=== PATIENT | female | born 1980 | race Hispanic/Latino ===

== ENCOUNTER 2017-08-01 21:21 | Emergency (ER) | payer MEDICAID | END 2017-08-01 22:30 | disposition home or self-care (01) | LOC: EDH 21:21 | DX: T16.2XXA Foreign body in left ear, initial encounter (principal); J45.909 Unspecified asthma, uncomplicated; K21.9 Gastro-esophageal reflux disease without esophagitis; Z91.041 Radiographic dye allergy status; Z88.1 Allergy status to other antibiotic agents; Z88.8 Allergy status to other drugs, medicaments and biological substances; Z98.51 Tubal ligation status; Z90.710 Acquired absence of both cervix and uterus; Z98.890 Other specified postprocedural states; X58.XXXA Exposure to other specified factors, initial encounter; Y93.89 Activity, other specified; Y92.89 Other specified places as the place of occurrence of the external cause; Y99.8 Other external cause status | CPT/HCPCS: 99281 ==

== ENCOUNTER 2018-07-09 00:45 | Emergency (ER) | payer MEDICAID ==
[~2018-07-09 00:45] MED LIST: CEFD300C3 PO
[2018-07-09] MEDS ORDERED: MORPHINE SULFATE 4 MG/1ML SYG ONE (01:19)
[2018-07-09 01:25] LABS: CREATININE 0.8 mg/dL (0.5-1.5); POTASSIUM 4.7 mmol/L (3.5-5.1)
[2018-07-09 01:30] LABS: ALBUMIN 3.5 g/dL (3.5-5.0); BILIRUBIN,TOTAL 0.4 mg/dL (0.2-1.0); TOTAL PROTEIN, SERUM 7.3 g/dL (6.0-8.3)
[2018-07-09 01:34] LABS: BILIRUBIN,URINE Negative (NEGATIVE); COLOR,URINE Yellow (YELLOW); GLUCOSE, URINE (UA) Negative (NEGATIVE); KETONES,URINE Negative (NEGATIVE); LEUKOCYTE ESTERASE ,URINE Negative (NEGATIVE); NITRATE,URINE Negative (NEGATIVE); OCCULT BLOOD,URINE Negative (NEGATIVE); PH,URINE 5.5 (5.0-8.0); PROTEIN,URINE Negative (NEGATIVE)
[2018-07-09 01:37] LABS: APPEARANCE,URINE CLEAR (CLEAR)
[2018-07-09 01:38] LABS: BASOPHILS % (AUTO) 0.7 % (0.0-5.0); EOSINOPHILS % (AUTO) 1.8 % (0.0-8.0); HEMATOCRIT 39.3 % (36-48); LYMPHOCYTES % (AUTO) 38.1 % (21.0-51.0); MEAN CORPUSCULAR HEMOGLOBIN 29.9 pg (27.0-33.0); MEAN CORPUSCULAR HGB CONC 33.8 g/dL (32.0-36.0); MEAN CORPUSCULAR VOLUME 88.7 fL (79-99); MONOCYTES % (AUTO) 6.6 % (3.0-13.0); NEUTROPHILS % (AUTO) 52.8 % (40.0-77.0); NUCLEATED RED BLOOD CELLS 0.3 % (0.0-0.19); PLATELET COUNT (AUTO) 108 K/uL (130-400); RED BLOOD CELL COUNT(AUTO) 4.43 MIL/uL (4.00-5.50); RED CELL DISTRIBUTION WIDTH 12.9 % (11.0-15.5); WHITE BLOOD COUNT (AUTO) 8.3 K/uL (4.8-10.8)
[2018-07-09 01:58] LABS: PLATELET MORPHOLOGY PLT CLUMPS PRESENT
== END 2018-07-09 03:11 | disposition home or self-care (01) ==
LOC: EDH 00:45
DX: K52.9 Noninfective gastroenteritis and colitis, unspecified (principal); J45.909 Unspecified asthma, uncomplicated; K21.9 Gastro-esophageal reflux disease without esophagitis; Z90.49 Acquired absence of other specified parts of digestive tract; Z90.710 Acquired absence of both cervix and uterus; Z98.51 Tubal ligation status; Z88.8 Allergy status to other drugs, medicaments and biological substances; Z88.6 Allergy status to analgesic agent; Z88.1 Allergy status to other antibiotic agents; Z91.041 Radiographic dye allergy status; Z79.899 Other long term (current) drug therapy
CPT/HCPCS: 36415; 74176; 80053; 81003; 81025; 83690; 85025; 93005; 96374; 99284; J2270

== ENCOUNTER 2018-10-08 21:44 | Emergency (ER) | payer MEDICAID ==
[2018-10-08 22:43] LABS: BASOPHILS % (AUTO) 0.5 % (0.0-5.0); EOSINOPHILS % (AUTO) 0.5 % (0.0-8.0); HEMATOCRIT 38.2 % (36-48); LYMPHOCYTES % (AUTO) 30.2 % (21.0-51.0); MEAN CORPUSCULAR HEMOGLOBIN 30.2 pg (27.0-33.0); MEAN CORPUSCULAR HGB CONC 34.3 g/dL (32.0-36.0); MONOCYTES % (AUTO) 7.9 % (3.0-13.0); NEUTROPHILS % (AUTO) 60.9 % (40.0-77.0); NUCLEATED RED BLOOD CELLS 0.1 % (0.0-0.19); PLATELET COUNT (AUTO) 217 K/uL (130-400); RED BLOOD CELL COUNT(AUTO) 4.34 MIL/uL (4.00-5.50); RED CELL DISTRIBUTION WIDTH 12.8 % (11.0-15.5); WHITE BLOOD COUNT (AUTO) 8.4 K/uL (4.8-10.8)
[2018-10-08] MEDS ORDERED: KETOROLAC TROMETHAMINE 30MG/ML ONE (22:45)
[2018-10-08] MEDS ORDERED: METOCLOPRAMIDE 10 MG/2 ML VIAL ONE (22:45)
[2018-10-08] MEDS ORDERED: SODIUM CHLORIDE 0.9% 1000ML 1,000 ML IV ONE (22:45)
[2018-10-08] MEDS ORDERED: ONDANSETRON HCL 4 MG/2 ML VIAL ONE (22:45)
[2018-10-08 23:00] LABS: PARTIAL THROMBOPLASTIN TIME 30.8 SEC (26.3-35.5); PROTHROMBIN TIME 10.5 SEC (9.6-11.6)
[2018-10-08 23:09] LABS: CREATININE 0.9 mg/dL (0.5-1.5)
[2018-10-08 23:14] LABS: ALBUMIN 3.7 g/dL (3.5-5.0); BILIRUBIN,TOTAL 0.4 mg/dL (0.2-1.0); TOTAL PROTEIN, SERUM 7.2 g/dL (6.0-8.3)
== END 2018-10-09 | disposition home or self-care (01) ==
LOC: EDH 21:44
DX: R51 Headache (principal); G89.29 Other chronic pain; R42 Dizziness and giddiness; J45.909 Unspecified asthma, uncomplicated; K21.9 Gastro-esophageal reflux disease without esophagitis; Z90.49 Acquired absence of other specified parts of digestive tract; Z98.51 Tubal ligation status; Z90.710 Acquired absence of both cervix and uterus; Z91.041 Radiographic dye allergy status; Z88.1 Allergy status to other antibiotic agents; Z88.8 Allergy status to other drugs, medicaments and biological substances
CPT/HCPCS: 36415; 71045; 80053; 84484; 85025; 85610; 85730; 93005; 96361; 96374; 96375; 99285; J1885; J2405; J2765; J7030

== ENCOUNTER 2018-12-03 20:12 | Emergency (ER) | payer MEDICAID ==
[2018-12-03] MEDS ORDERED: ORPHENADRINE CITRATE 30 MG/ML ML ONE (20:35)
[2018-12-03 20:54] LABS: BASOPHILS % (AUTO) 0.6 % (0.0-5.0); EOSINOPHILS % (AUTO) 0.7 % (0.0-8.0); HEMATOCRIT 41.3 % (36-48); LYMPHOCYTES % (AUTO) 24.8 % (21.0-51.0); MEAN CORPUSCULAR HEMOGLOBIN 30.1 pg (27.0-33.0); MEAN CORPUSCULAR HGB CONC 33.3 g/dL (32.0-36.0); MEAN CORPUSCULAR VOLUME 90.4 fL (79-99); MONOCYTES % (AUTO) 6.3 % (3.0-13.0); NEUTROPHILS % (AUTO) 67.6 % (40.0-77.0); PLATELET COUNT (AUTO) 219 K/uL (130-400); RED BLOOD CELL COUNT(AUTO) 4.56 MIL/uL (4.00-5.50); RED CELL DISTRIBUTION WIDTH 13.3 % (11.0-15.5); WHITE BLOOD COUNT (AUTO) 8.2 K/uL (4.8-10.8)
[2018-12-03 21:10] LABS: POTASSIUM 3.8 mmol/L (3.5-5.1)
[2018-12-03 21:14] LABS: ALBUMIN 3.7 g/dL (3.5-5.0); BILIRUBIN,DIRECT 0.1 mg/dL (0.0-0.3); BILIRUBIN,TOTAL 0.5 mg/dL (0.2-1.0); TOTAL PROTEIN, SERUM 7.6 g/dL (6.0-8.3)
== END 2018-12-03 21:58 | disposition home or self-care (01) ==
LOC: EDH 20:12
DX: S20.219A Contusion of unspecified front wall of thorax, initial encounter (principal); K21.9 Gastro-esophageal reflux disease without esophagitis; J45.909 Unspecified asthma, uncomplicated; Z88.1 Allergy status to other antibiotic agents; Z91.041 Radiographic dye allergy status; Z88.8 Allergy status to other drugs, medicaments and biological substances; W50.0XXA Accidental hit or strike by another person, initial encounter; Y93.89 Activity, other specified; Y92.89 Other specified places as the place of occurrence of the external cause; Y99.8 Other external cause status
CPT/HCPCS: 36415; 71045; 80048; 80076; 82550; 84484; 85025; 93005; 96374; 99285; J2360

== ENCOUNTER 2019-03-14 18:25 | Emergency (ER) | payer MEDICAID ==
[2019-03-14] MEDS ORDERED: ACETAMINOPHEN EXTRA STRENGTH 500 MG TABLET ONE (18:40)
== END 2019-03-14 19:57 | disposition home or self-care (01) ==
LOC: EDH 18:25
DX: M25.532 Pain in left wrist (principal); M54.2 Cervicalgia; M79.601 Pain in right arm; R07.89 Other chest pain; J45.909 Unspecified asthma, uncomplicated; K21.9 Gastro-esophageal reflux disease without esophagitis; Z90.710 Acquired absence of both cervix and uterus; Z91.041 Radiographic dye allergy status; Z91.040 Latex allergy status; Z88.1 Allergy status to other antibiotic agents; Z88.8 Allergy status to other drugs, medicaments and biological substances; Z90.49 Acquired absence of other specified parts of digestive tract; Y04.2XXA Assault by strike against or bumped into by another person, initial encounter; Y93.89 Activity, other specified; Y92.89 Other specified places as the place of occurrence of the external cause; Y99.8 Other external cause status
CPT/HCPCS: 72040; 73030; 73070; 73110; 93005

== ENCOUNTER 2022-03-25 18:27 | Emergency (ER) | payer MEDICAID ==
[~2022-03-25] VITALS: Ht 160 cm; Wt 93.9 kg
[2022-03-25] MEDS ORDERED: ACETAMINOPHEN 500 MG TABLET ONE (18:57)
[2022-03-25 19:18] VITALS: BP 118/70
== END 2022-03-25 20:11 | disposition home or self-care (01) ==
LOC: EDH 18:27
DX: U07.1 COVID-19 (principal); J45.909 Unspecified asthma, uncomplicated; Z79.899 Other long term (current) drug therapy; Z90.710 Acquired absence of both cervix and uterus
CPT/HCPCS: 99283; 87635; 87804 ×2; C9803

== ENCOUNTER 2023-04-23 03:03 | Emergency (ER) | payer MEDICAID ==
[2023-04-23 04:08] LABS: BASOPHILS # (AUTO) 0.04 K/uL (0.00-0.20); BASOPHILS % (AUTO) 0.3 % (0.0-5.0); EOSINOPHILS # (AUTO) 0.76 K/uL (0.00-0.70); EOSINOPHILS % (AUTO) 6.5 % (0.0-8.0); HEMATOCRIT 42.9 % (36-48); IMMATURE GRANULOCYTE ABSOLUTE 0.04 K/uL (0-1); LYMPHOCYTES # (AUTO) 5.1 K/uL (1.0-4.8); LYMPHOCYTES % (AUTO) 44.2 % (21.0-51.0); MEAN CORPUSCULAR HEMOGLOBIN 29.8 pg (27.0-33.0); MEAN CORPUSCULAR HGB CONC 32.4 g/dL (32.0-36.0); MEAN CORPUSCULAR VOLUME 91.9 fL (79-99); MONOCYTES # (AUTO) 0.8 K/uL (0.1-1.0); MONOCYTES % (AUTO) 6.9 % (3.0-13.0); NEUTROPHILS # (AUTO) 4.9 K/uL (1.8-7.7); NEUTROPHILS % (AUTO) 41.8 % (40.0-77.0); PLATELET COUNT (AUTO) 194 K/uL (130-400); RED BLOOD CELL COUNT(AUTO) 4.67 MIL/uL (4.00-5.50); RED CELL DISTRIBUTION WIDTH 15.2 % (11.0-15.5); WHITE BLOOD COUNT (AUTO) 11.6 K/uL (4.8-10.8)
[2023-04-23 05:16] LABS: ALBUMIN 2.7 g/dL (3.5-5.0); BILIRUBIN,TOTAL 0.6 mg/dL (0.2-1.0); POTASSIUM 3.5 mmol/L (3.5-5.1); TOTAL PROTEIN, SERUM 6.6 g/dL (6.0-8.3)
[2023-04-23 05:25] VITALS: BP 132/78; PULSE 56; RESP 18; O2SAT 98
== END 2023-04-23 06:56 | disposition home or self-care (01) ==
LOC: EDH 03:03
DX: R07.89 Other chest pain (principal); G43.909 Migraine, unspecified, not intractable, without status migrainosus; F32.A Depression, unspecified; F41.9 Anxiety disorder, unspecified; Z88.1 Allergy status to other antibiotic agents; Z88.8 Allergy status to other drugs, medicaments and biological substances; Z90.710 Acquired absence of both cervix and uterus; Z90.49 Acquired absence of other specified parts of digestive tract
CPT/HCPCS: 36415; 71045; 80053; 84484; 84703; 85025; 93005

== ENCOUNTER → 2023-09-11 | Outpatient (CLI) | payer MEDICAID | END | disposition home or self-care (01) | LOC: RAH 10:47 | PROVIDERS: ATTEND Family Medicine | DX: M54.9 Dorsalgia, unspecified (principal); Z88.1 Allergy status to other antibiotic agents; Z88.8 Allergy status to other drugs, medicaments and biological substances | CPT/HCPCS: 72100 ==

== ENCOUNTER 2024-09-30 20:06 | Emergency (ER) | payer MEDICAID ==
[~2024-09-30] VITALS: Ht 160 cm; Wt 81.6 kg
[~2024-09-30 20:06] MED LIST changes: +HYDR-4060 PO; +IBUP-2070 PO; +METH-811 PO
--- NOTE | 2024-09-30 21:02 | ERN ---
General Chief Complaint: Syncope Stated Complaint: PALPITATIONS,SYNCOPE Time Seen by MD: 20:07 History of Present Illness Initial Comments Patient is a 43-year-old female with a past medical history of lupus who had a syncopal episode at work today. She experienced sternal chest pain, palpitations and tachypnea followed by the room turning black and her falling backwards. She states that this has happened more than once a few years ago. Coworkers caught her and gently lowered her to the ground so there was no trauma to her head. She does not know how long she was unconscious. Currently she is fine and asymptomatic. There was no aura or pre visual symptoms beyond what is described above. She has no history of migraine headaches. She states that after this happened to her before and she had an extensive cardiac workup with Holter monitoring for up to 30 days and there was no arrhythmias discovered. Allergies: Coded Allergies: ciprofloxacin (Unverified Allergy, Unknown, 10/09/18) clarithromycin (Unverified Allergy, Unknown, 10/09/18) diphenhydramine (Unverified Allergy, Unknown, 10/09/18) iodine (Unverified Allergy, Unknown, 05/31/24) rofecoxib (Unverified Allergy, Unknown, 10/09/18) acetaminophen (Verified Adverse Reaction, Unknown, 10/09/18) NAUSEA/VOMITING hydrocodone bit (Verified Adverse Reaction, Unknown, 10/09/18) NAUSEA/VOMITING Uncoded Allergies: IODINEIODINE CONTAINING (Allergy, Unknown, 10/09/18) Home Meds Active Scripts Methocarbamol (Methocarbamol) 500 Mg Tablet, 500 MG PO QID PRN for PAIN for 5 Days, #30 TAB Prov:ALMA ROSA NGUYEN JANITOR CARETAKER 10/07/23 Ibuprofen (Ibuprofen) 600 Mg Tablet, 600 MG PO Q6H PRN for PAIN, #30 TAB Prov:ROLY ARROYO MD 05/19/23 Hydrocodone/Acetaminophen (Hydrocodon-Acetaminophen 5-325) 5 Mg-325 Mg Tablet, 1 EACH PO [id number] PRN for PAIN, #8 TAB Prov:ROLY ARROYO MD 05/19/23 Cefdinir (Cefdinir) 300 Mg Capsule, 300 MG PO BID for 3 Days, CAP Prov:GUSTAVO LANDEROS JANITOR CARETAKER 04/09/18 Past Medical History Past Medical History: Anxiety, Hypertension Medical History Other: LUPUS, HEART MURMUR Past Surgical History: None Surgical History Other: LEFT KNEE ARTH, Social History Social History: Lives with family Constitutional: (-) chills, (-) diaphoresis, (-) fever, (-) malaise, (-) weakness, (-) other documentation EENTM: (-) eye pain, (-) blurred vision, (-) tearing, (-) double vision, (-) ear pain, (-) ear discharge, (-) nose pain, (-) nose congestion, (-) throat pain, (-) Throat swelling, (-) mouth pain, (-) tooth pain, (-) mouth swelling, (-) other documentation Respiratory: (-) cough, (-) orthopnea, (-) short of breath, (-) stridor, (-) wheezing, (-) other documentation Cardiovascular: (-) chest pain, (-) edema, (-) palpitations, (-) syncope, (-) dyspnea on exertion, (-) other documentation Gastrointestinal/Abdominal: (-) nausea, (-) vomiting, (-) diarrhea, (-) abdominal pain, (-) abdominal distention, (-) constipation, (-) rectal bleeding, (-) dark stool/melena, (-) other documentation Musculoskeletal: (-) Neck pain, (-) back pain, (-) Flank Pain, (-) joint pain, (-) joint swelling, (-) muscle pain, (-) muscle stiffness, (-) gout, (-) other documentation Skin: (-) laceration, (-) contusion, (-) abrasion, (-) abscess, (-) rash, (-) change in color, (-) change in hair, (-) change in nails, (-) diaphoresis, (-) dryness, (-) other documentation Neuro: (+) syncope Physical Exam General Appearance: (+) mild distress Orientation: (+) alert, (+) oriented x 3 Head/Face Trauma: No Eye: bilateral eye normal inspection, bilateral eye PERRL, bilateral eye EOMI Ear, Nose, Throat: (+) hearing grossly normal, (+) normal ENT inspection, (+) moist mucous membraine Neck: (+) normal inspection, (+) supple, (+) full range of motion Respiratory: (+) chest non-tender, (+) lungs clear, (+) well ventilated Heart: (+) regular Heart Comment I could not hear a murmur while listening Vascular: (+) no edema, (+) normal peripheral pulse Gastrointestinal: (+) soft, (+) non-tender, (+) bowel sound present Results Laboratory and Microbiology Lab and Micro Result Laboratory Tests Test 09/30/24 21:08 09/30/24 22:02 White Blood Count 5.9 K/uL (4.8-10.8) Red Blood Count 4.30 MIL/uL (4.00-5.50) Hemoglobin 13.1 g/dL (12.0-16.0) Hematocrit 39.1 % (36-48) Mean Corpuscular Volume 90.9 fL (79-99) Mean Corpuscular Hemoglobin 30.5 pg (27.0-33.0) Mean Corpuscular Hemoglobin Concent 33.5 g/dL (32.0-36.0) Red Cell Distribution Width 12.6 % (11.0-15.5) Platelet Count 287 K/uL (130-400) Mean Platelet Volume 10.7 fL (7.5-10.5) H Immature Granulocyte % (Auto) 0.2 % (0-1) Neutrophils (%) (Auto) 60.6 % (40.0-77.0) Lymphocytes (%) (Auto) 30.6 % (21.0-51.0) Monocytes (%) (Auto) 7.8 % (3.0-13.0) Eosinophils (%) (Auto) 0.5 % (0.0-8.0) Basophils (%) (Auto) 0.3 % (0.0-5.0) Neutrophils # (Auto) 3.6 K/uL (1.8-7.7) Lymphocytes # (Auto) 1.8 K/uL (1.0-4.8) Monocytes # (Auto) 0.5 K/uL (0.1-1.0) Eosinophils # (Auto) 0.03 K/uL (0.00-0.70) Basophils # (Auto) 0.02 K/uL (0.00-0.20) Absolute Immature Granulocyte (auto 0.01 K/uL (0-1) Nucleated Red Blood Cells 0.0 % (0.0-0.19) Sodium Level 137 mmol/L (136-145) Potassium Level 3.9 mmol/L (3.5-5.1) Chloride Level 104 mmol/L (101-111) Carbon Dioxide Level 27 mmol/L (21-32) Blood Urea Nitrogen 18 mg/dL (7-18) Creatinine 1.0 mg/dL (0.5-1.0) Glomerular Filtration Rate Calc 71 mL/min (>90) Random Glucose 101 mg/dL (70-105) Total Calcium 8.8 mg/dL (8.5-10.1) Troponin I High Sensitivity < 4 ng/L (4-50) L Urine Color LIGHT-YELLOW (YELLOW) Urine Appearance CLEAR (CLEAR) Urine pH 5.5 (5.0-8.0) Urine Specific [place] 1.020 (1.001-1.031) Urine Protein NEGATIVE mg/dL (NEGATIVE) Urine Glucose (UA) NEGATIVE mg/dL (NEGATIVE) Urine Ketones NEGATIVE mg/dL (NEGATIVE) Urine Occult Blood NEGATIVE (NEGATIVE) Urine Nitrate NEGATIVE (NEGATIVE) Urine Bilirubin NEGATIVE mg/dL (NEGATIVE) Urine Urobilinogen 0.2 mg/dL (0.2-1.0) Urine Leukocyte Esterase NEGATIVE Donovan/uL MDM Syncopal workup labs have already been written for including EKG. The EKG shows normal sinus rhythm and no T-wave abnormalities or ST elevations.. I will bolused the patient a L of lactated Ringer's. And follow-up on the labs. His lab work has come back negative no elevated white blood cell count normal chemistry panels normal urine normal EKG and negative troponin. Patient states she feels better. I do not have an easy explanation for the patient's symptoms. I certainly have seen dehydration cause chest pain. I think a head CT would not help elucidate the cause of the patient's symptoms, and a CT scans are low yield for syncopal episodes. She needs to follow up with her primary care physician. I wrote a prescription for ibuprofen for the patient as it has helped her with pain associated with her lupus. ED Course Orders Procedure Category Date Status Time 12 Lead Ekg Tracing- EKG 09/30/24 Logged Technical 20:20 Cbc With Differential LAB 09/30/24 Complete 20:48 Basic Metabolic Panel LAB 09/30/24 Complete 20:48 Troponin I High LAB 09/30/24 Complete Sensitivity 20:48 Lactated Ringers PHA 09/30/24 Complete 1000ml (Lactated 20:56 Lidocaine Hcl 2% PHA 09/30/24 Complete Viscous (Lidocaine Hcl 21:00 Mag/Alum/Simeth 30ml PHA 09/30/24 Complete (Maalox Plus 30ml) 21:00 Urinalysis Profile LAB 09/30/24 Complete 21:02 Chest 1vw RAD 09/30/24 Taken 21:02 Current Medications Medications (Trade) Dose Ordered Sig/Jorge Route PRN Reason Start Time Stop Time Status Last Admin Dose Admin Al Hydroxide/Mg Hydroxide (MAALox PLUS 30ML) 30 ml ONCE ONCE PO 09/30/24 21:00 09/30/24 21:01 DC 09/30/24 21:16 Lactated Ringer's (Lactated Ringers 1000ml) 1,000 ml BOLUS STAT IV 09/30/24 20:56 09/30/24 20:57 DC 09/30/24 21:15 Lidocaine HCl (Lidocaine HCl 2% Viscous) 10 ml ONCE ONCE PO 09/30/24 21:00 09/30/24 21:01 DC 09/30/24 21:16 Vital Signs Date Time Temp Pulse Resp B/P (MAP) Pulse Ox O2 Delivery O2 Flow Rate FiO2 09/30/24 22:23 98.4 62 20 128/77 97 Room Air* 0 21 09/30/24 20:42 98.4 74 18 130/82 98 Room Air* 0 21 09/30/24 20:07 98.2 78 16 130/83 99 Room Air 0 DX & DISP Disposition: Discharge Departure Impression: Primary Impression: Syncope and collapse Condition: Stable Scripts Ibuprofen (Ibuprofen 800 mg Tab) 800 Mg Tab 1 TAB PO TID for pain for 30 Days, #90 TAB 0 Refills Prov: JOHN BURNETT MD 09/30/24 Additional Instructions: Please stay hydrated. Drink enough fluid each day so that your urine runs clear at least once a day. If these episodes continue to happen please follow-up with your primary care physician or your senior hardware engineer. Referrals: KENNEDY DAVIS (PCP) JOHN BURNETT MD September 30, 2024 21:02
[2024-09-30 21:15] LABS: BASOPHILS # (AUTO) 0.02 K/uL (0.00-0.20); BASOPHILS % (AUTO) 0.3 % (0.0-5.0); EOSINOPHILS # (AUTO) 0.03 K/uL (0.00-0.70); EOSINOPHILS % (AUTO) 0.5 % (0.0-8.0); HEMATOCRIT 39.1 % (36-48); IMMATURE GRANULOCYTE ABSOLUTE 0.01 K/uL (0-1); LYMPHOCYTES # (AUTO) 1.8 K/uL (1.0-4.8); LYMPHOCYTES % (AUTO) 30.6 % (21.0-51.0); MEAN CORPUSCULAR HEMOGLOBIN 30.5 pg (27.0-33.0); MEAN CORPUSCULAR HGB CONC 33.5 g/dL (32.0-36.0); MEAN CORPUSCULAR VOLUME 90.9 fL (79-99); MONOCYTES # (AUTO) 0.5 K/uL (0.1-1.0); MONOCYTES % (AUTO) 7.8 % (3.0-13.0); NEUTROPHILS # (AUTO) 3.6 K/uL (1.8-7.7); NEUTROPHILS % (AUTO) 60.6 % (40.0-77.0); PLATELET COUNT (AUTO) 287 K/uL (130-400); RED CELL DISTRIBUTION WIDTH 12.6 % (11.0-15.5); WHITE BLOOD COUNT (AUTO) 5.9 K/uL (4.8-10.8)
[2024-09-30] MEDS: LACTATED RINGERS 1000ML IV STA (21:15)
[2024-09-30] MEDS: MAG/ALUM/SIMETH 30 ML UDCUP PO ONE (21:16)
[2024-09-30] MEDS: LIDOCAINE HCL 2% VISCOUS 15 ML UDCUP PO ONE (21:16)
[2024-09-30 21:23] LABS: POTASSIUM 3.9 mmol/L (3.5-5.1)
[2024-09-30 22:19] LABS: APPEARANCE,URINE CLEAR (CLEAR); BILIRUBIN,URINE NEGATIVE (NEGATIVE); COLOR,URINE LIGHT-YELLOW (YELLOW); GLUCOSE, URINE (UA) NEGATIVE (NEGATIVE); KETONES,URINE NEGATIVE (NEGATIVE); LEUKOCYTE ESTERASE ,URINE NEGATIVE Leu/uL (NEGATIVE); NITRATE,URINE NEGATIVE (NEGATIVE); OCCULT BLOOD,URINE NEGATIVE (NEGATIVE); PH,URINE 5.5 (5.0-8.0); PROTEIN,URINE NEGATIVE (NEGATIVE); UROBILINOGEN,URINE 0.2 mg/dL (0.2-1.0)
[2024-09-30 22:24] LABS: ADD UA MICROSCOPIC NO
[2024-09-30] MEDS ORDERED: IBUP-2077 PO (22:43)
[2024-09-30 23:04] VITALS: BP 124/70; PULSE 58; RESP 19; TEMP 98.4; O2SAT 99
--- NOTE | 2024-10-01 08:15 | EKG ---
[facility] [place] Test Date: 2024-09-30 Test Time: 20:16:56 Pat Name: LEA ROBLES Department: ED Room: Gender: F Button Sawyer: [id number] : 1980 Requested By: JOHN BURNETT Order Number: [id number] Reading MD: Corbin Martinez Measurements Intervals [place] Rate: 64 P: 47 SC: 143 QRS: -8 QRSD: 87 T: 7 QT: 398 QTc: 411 Interpretive Statements Sinus rhythm Compared to ECG 04/23/2023 05:54:42 No significant changes Electronically Signed On 10-01-2024 22:27:47 CDT by Corbin Martinez Please click the below link to view image of tracing.
--- NOTE | 2024-10-01 09:31 | HMCIMG ---
CHEST 1VW HISTORY: Syncope COMPARISON: 04/23/2023 FINDINGS: A frontal projection of the chest was obtained. No acute pulmonary infiltrates is seen. The heart is normal in size. Mild degenerative changes are seen. No evidence of aortic calcification is seen. IMPRESSION: 1. No acute pulmonary infiltrate is seen.
== END 2024-09-30 23:10 | disposition home or self-care (01) ==
LOC: EDH 20:06
DX: R55 Syncope and collapse (principal); I10 Essential (primary) hypertension; Z88.1 Allergy status to other antibiotic agents; Z88.8 Allergy status to other drugs, medicaments and biological substances; Z91.041 Radiographic dye allergy status
CPT/HCPCS: 99285; 71045; 84484; 80048; 85025; 81003; 36415; 93005; J7120